=== PATIENT | male | born 1945 | race Caucasian/White ===

== ENCOUNTER 2016-09-05 00:51 | Emergency (ER) | payer MEDICARE, OTHER ==
--- NOTE | 2016-09-05 01:06 | ERNOTE ---
Chest Pain/Cardiac HPI Date of Service: 09/05/16 Chief Complaint: Chest Pain Time Seen by Provider: 09/05/16 01:00 Source: patient, family Exam Limitations: no limitations Immunizations: IMMUNIZATION HX Immunizations Up to Date Yes History of Influenza Vaccine No Hx Pneumococcal Vaccination No Allergies/Adverse Reactions: Allergies No Known Allergies Allergy (Unverified 09/05/16 00:52) Home Medications: HOME MEDICATIONS Aspirin [Aspirin EC] 81 mg PO DAILY 09/05/16 [Last Taken Unknown] Lisinopril [Zestril] 20 mg PO DAILY 09/05/16 [Last Taken Unknown] [place]-3 Fatty Acids [[place]-3] 150 mg PO DAILY 09/05/16 [Last Taken Unknown] Simvastatin [Zocor] 40 mg PO WESA 09/05/16 [Last Taken Unknown] Narrative: This is a 71-year-old male with a history of high blood pressure and high cholesterol. He does not have a history of tobacco abuse, family history of early cardiac disease, or diabetes. The patient presents to the emergency department with the sudden onset of left-sided chest pain. He describes this pain as sharp and located at his inferior costal margin. This occurred spontaneously when he was going to bed and was so severe that he could not take a deep breath or move. Breathing now does not cause increased pain nor does moving his arm but when he tries to sit up he gets a sharp shooting pain. He has never had similar pain in the past. The patient denies any recent stresses or activities which may have caused inflammation. The patient did not have any nausea vomiting or diaphoresis. The pain is there only when he moves around. He was initially going to try and get up and sleep in a recliner but decided since he is having pain he would come to the ER. Again his symptoms started at 10 to 10:30 PM but he took 2 aspirin at midnight. These were 325 aspirin. The patient denies having shortness of breath, cough, fever, difficulty swallowing, nausea, vomiting, diarrhea. Timing: intermittent Severity/Quality: severe, sharp, stabbing Location: left chest Chest Pain Radiation: no radiation Activities at Onset: none Modifying Factors - Worsens: Present: movement Aspirin Treatment Today: 325 mg x 1 - 2 Associated Symptoms: Absent: headache, dizziness, syncope, cough, shortness of breath, diaphoresis, fever/chills, palpitations, heartburn, nausea, vomiting, abdominal pain, weakness, back pain, swelling/lump in chest, other Prior Chest Pain/Cardiac Workup: Reports: no prior cardiac workup Review of Systems - Narrative Narrative: Except as above the remainder of the review of systems is otherwise negative - Review of Systems Constitutional: Present: no symptoms reported EYE: Present: no symptoms reported ENT: Present: no symptoms reported Respiratory: Present: no symptoms reported Cardiology: Present: See HPI. Absent: palpitations, syncope, claudication Gastrointestinal/Abdominal: Present: no symptoms reported Genitourinary: Present: no symptoms reported Skin: Present: no symptoms reported Neurological: Present: no symptoms reported Endocrine: Present: no symptoms reported Hematologic/Lymphatic: Present: no symptoms reported Psych: Present: no symptoms reported All Other Systems: All systems neg except as marked - Patient's Past Medical History Patient History - Medical: No pertinent hx Patient History - Cardiac/Respiratory: Hyperlipidemia Patient History - Cancer: No Hx of Cancer Patient History - Surgical Procedures: Hernia Repair Patient History - Other: None - Social History Living Situations: home Abuse History: No History of abuse Psych History: No pertinent hx Smoking Status: Former smoker Have you smoked in the past 12 months: No Do you dip or chew tobacco: No Alcohol Use: none Drug Use: none - Immunizations Immunizations Up to Date: Yes Hx Pneumococcal Vaccination: No History of Influenza Vaccine: No Physical Exam - Physical Exam General Appearance: Present: wd/wn, alert, no apparent distress Eye Exam: Normal inspection: bilateral Ears, Nose, Throat: Present: normal ENT inspection Neck: Present: normal inspection, nontender Respiratory: Present: no respiratory distress, normal breath sounds, no accessory muscle use, other - patient does have reproducible chest wall pain with palpation along the sixth rib left anterior axillary line Cardiovascular/Chest: Present: regular rate, rhythm, no murmur, normal peripheral pulses. Absent: tachycardia, bradycardia, irregularly irregular, gallop/S3, gallop/S4 Peripheral Pulses: N=norm/S=strong/W=weak/B=bound/A=absent: Radial (R): Normal, Radial (L): Normal Gastrointestinal/Abdominal: Present: normal bowel sounds, nontender, nondistended, soft, no organomegaly Rectal Exam: Present: deferred Male Genitals Exam: Present: deferred Back Exam: Present: normal inspection, normal range of motion Extremity Exam: Present: normal inspection, non-tender, normal range of motion, no edema Neurological Exam: Present: alert, oriented, normal mood/affect, no motor/ sensory deficits Skin Exam: Present: normal color, warm/dry Lymphatic Exam: Present: no adenopathy ED Progress - Results and Orders Patient's Lab Results:: I have reviewed the patient's lab results. - Vital Signs Patient's Vital Signs:: I have reviewed the patient's vital signs. Vital Signs: Vital Signs 09/05/16 00:54 Temperature 36.8 C Pulse Rate 93 Respiratory 18 Rate Blood Pressure 187/91 O2 Sat by Pulse 98 Oximetry - EKG EKG read: Interp. by me EKG Comments: EKG as interpreted by me shows normal sinus rhythm at a rate of 88 first degree AV block with TN interval of 210 normal axis normal other intervals. ST segments are normal in appearance. No change from previous EKG dated 2012. - X-Ray X-Ray #1 X-Ray: chest Interpretation: Interp. by me X-ray Comments: Chest x-ray does not show any acute abnormalities. No fracture. No infiltrate. No pneumothorax. Cardio mediastinal silhouette is normal. No acute disease. - Progress/Reassessment Chief Complaint: Chest Pain Progress:: Pain free at discharge Progress Note-Subjective: 09/05/16 04:01 The patient had an initial set of cardiac enzymes drawn which were normal. Initial labs were normal. X-ray was normal. EKG was nonischemic. His chest pain sounds very atypical for acute coronary syndrome. Nevertheless I have agreed to draw two-hour set of troponin. If this delta troponin is up at all he will be admitted to the hospital. If it is down or equivocal meaning it is still undetectable, I will discuss with him the importance of scheduling an outpatient stress test to have this completely evaluated. Plan - Plan Plan: Patient's second set of cardiac enzymes are negative. I've discussed with him that this gives us a reasonable medical certainty that his symptomatology is not coming from acute coronary syndrome. He is aware that the only way to have a complete medical certainty with today's testing is to get a stress test done. He is comfortable excepting a very small but real risk of this being acute coronary syndrome which we are missing and will talk to his doctor about getting a stress test done at home. Departure - Departure Clinical Impression: Chest pain of uncertain etiology Disposition: Home self-care Condition: Stable Instructions: Chest Wall Pain, [id number] Additional Instructions: As we have discussed, the labs, studies, x-ray, EKG are all normal here. This does not completely exclude the possibility of your heart being the cause for her symptoms. Later symptoms represented along with the labs and other studies may be reasonably certain that this is not the case. He still need to follow up with your family doctor. You need to set up an outpatient stress test. Take an aspirin every day. Certainly if you develop increased chest pain, shortness breath, sweatiness, nausea, vomiting, or any other new worrisome symptoms she should return to the ER as soon as possible. Referrals: Joleen Rojas, RICARDO [Primary Care Provider] -
[2016-09-05 01:12] LABS: Hematocrit 41.4 % (42.0-52.0); Hemoglobin 13.9 gm/dL (13.5-18.0); Mean Corpuscular Hemoglobin 29.9 pg (27-31); Mean Corpuscular Hgb Conc 33.6 g/dl (32-36); Mean Platelet Volume 9.2 fl (6.0-9.5); Neutrophil # 3.3 K/mm3 (1.3-6.0); Platelet Count 174 K/mm3 (150-450); Red Blood Count 4.65 M/mm3 (4.7-6.0); Red Cell Distribution Width 12.3 % (11.5-14.0); White Blood Count 5.5 K/mm3 (4.0-10.5)
[2016-09-05 01:30] LABS: ALT 22 U/L (19-67); AST 19 U/L (0-48); Albumin * 3.7 gm/dl (3.4-5.0); Alkaline Phosphatase * 51 U/L (50-170); Anion Gap 10.1 mmol/L (6.8-13.8); BUN/Creatinine Ratio 25.3 (9.0-21.6); Bilirubin, Total 0.6 mg/dL (0.0-1.1); Blood Urea Nitrogen 22 mg/dL (6-23); Ca. Corrected For Albumin 9.2 mg/dL (8.4-10.2); Calcium * 9.3 mg/dL (7.9-10.9); Chloride 108 mmol/L (97-106); Glucose * 108 mg/dL (70-110); Potassium 4.1 mmol/L (3.4-4.6); Sodium 142 mmol/L (132-142); Total Protein 6.9 gm/dL (6.2-8.2)
[2016-09-05 01:31] LABS: Troponin I Less than 0.017 ng/ml (0.00-0.10)
[2016-09-05 06:03] VITALS: BP 127/72
== END 2016-09-05 04:15 | disposition home or self-care (01) ==
LOC: ER 00:51
DX: R07.9 Chest pain, unspecified (principal); E78.5 Hyperlipidemia, unspecified